=== PATIENT | male | born 1985 | race Caucasian/White ===

== ENCOUNTER 2025-07-26 02:03 | Emergency (ER) | payer MEDICAID, SELFPAY ==
[2025-07-26 02:05] VITALS: BP 171/105; PULSE 85; TEMP 36.7; O2SAT 98; BMI 27.4
--- NOTE | 2025-07-26 02:19 | XR_ITS ---
[place] [id number] Patient Name: PADMA MACKAY MRN: [id number] date: 1985 Sex: M Assigned Patient Location: ER Current Patient Location: Accession/Order Number: [id number] Exam Date: 07/26/2025 02:38 Report Date: 07/26/2025 08:28 At the request of: SERAFIN SNOW Procedure: XR acute abdomen series ACUTE ABDOMEN SERIES WITH PA CHEST : CLINICAL HISTORY: upper abd pain COMPARISON: Chest x-ray 02/21/2021 1 view Chest: Unremarkable cardiomediastinal. Lungs clear. No effusion or pneumothorax. 2 view Abd: No free air within the upper abdomen. Nonspecific bowel gas pattern with mild to moderate retained stool. Surgical clips project within the upper epigastric region. XR/XR acute abdomen series IMPRESSION: NEGATIVE PLEURAL-PARENCHYMAL DISEASE. NEGATIVE FOR BOWEL OBSTRUCTION. Impression dictated by: Sukhjinder Wayne M.D. 07/26/2025 8:28 AM Dictation Location: [place] [address] Electronically authenticated by: [id number] Y Date: 07/26/2025 08:28
--- NOTE | 2025-07-26 02:19 | ECG_ITS ---
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 Measurements Intervals [place] Rate: 76 P: 37 [place]: 156 QRS: 34 QRSD: 86 T: 19 QT: 366 QTc: 397 Interpretive Statements 1100 Sinus rhythm 1102 Sinus arrhythmia [address] elevation 8102 Low QRS voltage in chest leads 9130 borderline ECG Compared to ECG 12/15/2017 19:02:35 ST (T wave) deviation now present Low QRS voltage now present Electronically Signed On 07-26-2025 7:25:45 EST by RESHMA RICHARD M.D.
--- NOTE | 2025-07-26 02:20 | ED.ABDPAIN1 ---
HPI - Abdominal Pain General Chief Complaint: Abdominal Pain Stated Complaint: ABD PAIN Time Seen by Provider: 07/26/25 02:09 Source: patient Mode of arrival: walk-in Limitations: no limitations History of Present Illness HPI narrative: cc - abdominal pain Pr reported that around 8pm tonight, the patient developed upper abdominal pain after eating pizza. he said that the pain has worsened despite taking pepto-bismol and ibuprofen. He said that he has never had anything like this before. 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 Related Data Previous Rx's ?Medication ?Instructions ?Recorded hyoscyamine sulfate 0.125 mg 0.125 mg PO Q6H PRN abdominal pain 07/26/25 sublingual tablet (Levsin/SL) #20 tabs ondansetron 4 mg disintegrating 4 mg PO Q6H PRN nausea and 07/26/25 tablet vomiting #20 tabs Allergies Allergy/AdvReac Type Severity Reaction Status Date / Time dapsone Allergy Severe Difficulty Verified 07/26/25 02:11 Breathing PFSH PFSH Social History Little interest or pleasure in doing things: not at all Feeling down, depressed, or hopeless: not at all Exam Narrative Exam Narrative: Nurses notes and vital signs reviewed and patient is not hypoxic. afebrile General: Well-appearing and in no apparent distress. Skin: Warm, dry, no pallor noted. No rash. Eye: Pupils are equal, round and EOMI. No scleral icterus. Ears, Nose, Mouth, and Throat: Oral mucosa is moist Cardiovascular: Regular Rate and Rhythm without murmur, gallop or rub. Respiratory: No accessory muscle use or respiratory distress. Lungs are clear to auscultation, no wheezing, rales or rhonchi Back: No CVA tenderness Musculoskeletal: normal ROM GI: Abdomen is soft, non-distended. Normal bowel sounds. No solid or pulsatile masses appreciated. Diffuse upper abdominal tenderness to palpation. No rebound, guarding, or rigidity noted. Neurological: A&O x4. No cranial nerve dysfunction observed. No truncal ataxia. Moves all extremities. Sensation intact. Psychiatric: Cooperative and interactive. Normal mood and affect. Constitutional Vital Signs, click to edit/add: Last Vital Signs Temp 98.0 F 07/26/25 02:05 Pulse 85 07/26/25 02:05 Resp 20 07/26/25 02:05 BP 171/105 H 07/26/25 02:05 Pulse Ox 98 07/26/25 02:05 O2 Del Method Room Air 07/26/25 02:05 Course Vital Signs Vital signs: Vital Signs Temperature 98.0 F 07/26/25 02:05 Pulse Rate 85 07/26/25 02:05 Respiratory Rate 20 07/26/25 02:05 Blood Pressure 171/105 H 07/26/25 02:05 Pulse Oximetry 98 07/26/25 02:05 Oxygen Delivery Method Room Air 07/26/25 02:05 Temperature 98.0 F 07/26/25 02:05 Pulse Rate 85 07/26/25 02:05 Respiratory Rate 20 07/26/25 02:05 Blood Pressure 171/105 H 07/26/25 02:05 Pulse Oximetry 98 07/26/25 02:05 Oxygen Delivery Method Room Air 07/26/25 02:05 MDM - Abdominal Pain MDM Narrative Medical decision making narrative: Patient was placed on director of cardiac rehabilitation and EKG obtained. Blood drawn and sent for evaluation. Pt was ordered to receive IV Protonix and oral GI cocktail for his symptoms. CBC normal. CMP essentially unremarkable -there is a slight elevation of BUN and CO2. Lipase negative. Abdominal x-ray does not reveal any perforation or obstruction. EKG without ST elevation or deep ischemic changes. Pt's pain reduced from 8/10 to 6/10. He and I talked about his negative testing, diagnosis and plan for recovery, including clear liquid diet and advancement only to soft bland foods until his symptoms resolved. Pt was given a single Mica tab to take when he gets home - he drove - to hopefully fully resolve the pain. Lab Data Attestation: I reviewed the patient's lab results. Labs: Lab Results 07/26/25 Range/Units 02:10 WBC 9.3 (4.0-11.0) 10^3/uL RBC 4.71 (4.70-6.10) 10^6/uL Hgb 15.0 (14.0-18.0) g/dL Hct 44.0 (42.0-54.0) % MCV 93.4 (80.0-94.0) fL MCH 31.8 (25.9-34.0) pg MCHC 34.1 (29.9-35.2) g/dL RDW 11.9 (11.0-15.0) % Plt Count 252 (150-450) 10^3/uL MPV 9.0 L (9.5-13.5) fL Neut % (Auto) 52.5 (43.0-75.0) % Lymph % (Auto) 35.2 (20.5-60.0) % Ellsworth % (Auto) 9.9 (1.7-12.0) % Eos % (Auto) 1.4 (0.9-7.0) % Baso % (Auto) 0.4 (0.2-2.0) % Neut # (Auto) 4.8 (1.4-6.5) 10^3/uL Lymph # (Auto) 3.3 (1.2-3.8) 10^3/uL Ell[place] # (Auto) 0.9 H (0.3-0.8) 10^3/uL Eos # (Auto) 0.1 (0.0-0.7) 10^3/uL Baso # (Auto) 0.0 (0.0-0.1) 10^3/uL Abs Immat Gran (auto) 0.06 H (0.00-0.03) 10^3/uL Imm/Tot Granulo (auto) 0.6 H (0.0-0.5) % Sodium 142 (136-145) mmol/L Potassium 4.0 (3.5-5.1) mmol/L Chloride 104 (98-107) mmol/L Carbon Dioxide 32.5 H (21.0-32.0) mmol/L Anion Gap 9.5 BUN 19.0 H (7.0-18.0) mg/dL Creatinine 1.23 (0.70-1.30) mg/dL Est GFR ( Amer) >60 (>=60 mL/min/1.73m^2) Est GFR (Non-Af Amer) >60 (>=60 mL/min/1.73m^2) BUN/Creatinine Ratio 15.4 Glucose 95 (74-106) mg/dL Calcium 8.3 L (8.5-10.1) mg/dL Total Bilirubin 0.3 (0.2-1.0) mg/dL AST 18 (15-37) U/L ALT 39 (16-63) U/L Alkaline Phosphatase 112 (46-116) U/L Total Protein 6.4 (6.4-8.2) g/dL Albumin 3.6 (3.4-5.0) g/dL Globulin 2.8 g/dL Albumin/Globulin Ratio 1.3 Lipase 42.0 (16.0-77.0) U/L Imaging Data Abdominal x-ray: Attestation: I personally reviewed and interpreted this imaging study as follows: My impression: No perforation or obstruction was noted. No identifiable mass. Mildly increased stool burden on the right. ECG Data Attestation: I personally reviewed and interpreted this ECG as follows: Interpretation: EKG interpretation:Emergency Department physician interpretation.Normal sinus rhythm at 76bpm. Normal axis, normal intervals and nonspecific ST changes without ST segment elevation or depression. Discharge Plan Discharge Chief Complaint: Abdominal Pain Clinical Impression: Abdominal pain Patient Disposition: Home, Self-Care Time of Disposition Decision: 03:02 Prescriptions / Home Meds: New hyoscyamine sulfate [Levsin/SL] 0.125 mg tablet, sublingual 0.125 mg PO Q6H PRN (Reason: abdominal pain) Qty: 20 0RF ondansetron 4 mg tablet,disintegrating 4 mg PO Q6H PRN (Reason: nausea and vomiting) Qty: 20 0RF Print Language: Burundian Instructions: Abdominal Pain (ED) Additional Instructions: clear liquid diet for next 24hours then only ingest soft, bland foods until symptoms resolve. Referrals: Bria MOBLEY [Primary Care Provider, Family Practice] - 1 week
[2025-07-26 02:26] LABS: Hematocrit 44.0 % (42.0-54.0); Hemoglobin 15.0 g/dL (14.0-18.0); Immature Granulocytes Abs Auto 0.06 10^3/uL (0.00-0.03); Immature Granulocytes Pct Auto 0.6 % (0.0-0.5); Lymphocytes Absolute Auto 3.3 10^3/uL (1.2-3.8); Mean Corpuscular HGB Conc 34.1 g/dL (29.9-35.2); Mean Corpuscular Hemoglobin 31.8 pg (25.9-34.0); Mean Corpuscular Volume 93.4 fL (80.0-94.0); Platelet Count 252 10^3/uL (150-450); Red Blood Count 4.71 10^6/uL (4.70-6.10); White Blood Count 9.3 10^3/uL (4.0-11.0)
[2025-07-26 02:28] VITALS: PULSE 76
[2025-07-26] MEDS: PANTOPRAZOLE SODIUM 40 MG VIAL IV (02:31)
[2025-07-26 02:40] LABS: Alanine Aminotransferase 39 U/L (16-63); Albumin Globulin Ratio 1.3; Albumin Level 3.6 g/dL (3.4-5.0); Alkaline Phosphatase 112 U/L (46-116); Anion Gap 9.5; Aspartate Amino Transferase 18 U/L (15-37); Blood Urea Nitrogen 19.0 mg/dL (7.0-18.0); Calcium 8.3 mg/dL (8.5-10.1); Carbon Dioxide 32.5 mmol/L (21.0-32.0); Chloride 104 mmol/L (98-107); Estimated GFR (African America >60 (>=60 mL/min/1.73m^2); Estimated GFR (Non-African Ame >60 (>=60 mL/min/1.73m^2); Globulin 2.8 g/dL; Glucose 95 mg/dL (74-106); Lipase 42.0 U/L (16.0-77.0); Potassium 4.0 mmol/L (3.5-5.1); Sodium 142 mmol/L (136-145); Total Protein 6.4 g/dL (6.4-8.2)
--- OUTSIDE RECORDS SUMMARY | 2025-07-26 03:03 | XMS_ITS ---
Author Organization [facility] Address [address] [address] Care Team Providers Care Sheet Writer Name Role Phone Geronimo Jimenez DO Primary Care Provider [phone] Priscilla Hartmna DO Unavailable Xenia Renee Unavailable [phone] Active Problems ProblemNoted DateDiagnosed DateSprain of metacarpophalangeal joint of left thumb 04/14/20255706Dohhdwgdnrncsm54/20/2023Epididymal cyst08/08/2023llergic rhinitis 12/27/20226852Tbhlwz70/10/2023 Assessment & Plan (07/01/2025 12:48 PM EST): Patient advised to return if symptoms worsen and/or persist despite treatment. Sees pulm tomorrow Orders: predniSONE (Deltasone) 20 MG tablet; Take 1 tablet (20 mg) by mouth 3 (three) times a day for 3 days, THEN 1 tablet (20 mg) 2 (two) times a day for 3 days, THEN 1 tablet (20 mg) Daily for 2 days. Finding of above normal blood oqjvwyvp18/10/0911Pftzmupw39/10/2023 Assessment & Plan (07/01/2025 12:48 PM EST): Problem is stable, will continue with current treatment plan. Call or return to clinic if any changes occur Orders: zolpidem (Ambien) 10 MG tablet; Take 1 tablet (10 mg) by mouth as needed at bedtime for sleep Malignant tumor of /10/2023Germ cell tumor11/13/2022Stage 1 chronic kidney akvmivw9011/13/20222372Zgitmgsqkzghwrwwo68/23/2018Bleomycin lung toxicity 03/08/20159032Slizttbarfwf73/10/6219Skjqfi26/30/5918Pmjgjkn99/19/2014 Current Treatment and Therapy Plans No current plan information found. Past Treatment and Therapy Plans No past plan information found. Lifetime Dose Tracking * ChemicalLifetime DoseAutomatic EntryManual VcvorVstokxoot394.61 hZt262.61 mSv0 mSv Resolved Problems ProblemNoted DateDiagnosed DateResolved DateHx of Injury of left thumbPharyngitisLeft thumb nwzmpx85hronic kidney disease (CKD), stage I05/06/2025 05/06/2025
--- OUTSIDE RECORDS SUMMARY | 2025-07-26 03:03 | XMS_ITS | Encounter Summary ---
Author Organization [facility] Address [address] [place] [address] Care Team Providers Care [employer] Dispatcher Name Role Phone Lorettawoodrow Geronimo Pop DO Primary Care Provider [phone] Priscilla Hartman DO Unavailable [phone] Xenia Renee Unavailable [phone] Reason for Visit * ReasonOnset DateCommentsMed Iuegya6507/13/2025 Encounter Details DateTypeDepartmentCare Team (Latest Contact Info)Fcgtrrpjfcv91/24/2025Refill [facility] [address] [place] [id number] Archie Harrison LPN [address] [place] [address] Severe persistent asthma with acute exacerbation (HCC) Social History Tobacco UseTypesPacks/DayYears UsedDateSmoking Tobacco: NeverPassive Smoke Exposure: NeverSmokeless Tobacco: NeverAlcohol UseStandard Drinks/WeekComments Never0 (1 standard drink = 0.6 oz pure alcohol)PHQ-2AnswerDate RecordedPatient Health Questionnaire-2 Vtspu19008/31/2024Sex and Gender InformationValueDate RecordedSex Assigned at BirthNot on fileLegal IsuGahd3711/01/2022 8:26 PM EDT Gender IdentityNot on fileSexual OrientationNot on filedocumented as of this encounter Plan of Treatment DateTypeDepartmentCare Team (Latest Contact Info)Ouiwqxfbpny18/12/2025 8:30 AM ESTOffice Visit [facility] [address] [place] [id number] Priscilla Hartman DO [address] [place] [address] documented as of this encounter Visit Diagnoses Diagnosis Severe persistent asthma with acute exacerbation (HCC) documented in this encounter Care Teams Team MemberRelationshipSpecialtyStart DateEnd Date Geronimo Jimenez DO [address] [place] [address] PCP - GeneralFamily Medicine12/26/22 Xenia Renee PA PCP - GINA De [facility]02/18/24 Priscilla Hartman DO [address] [place] [address] Pulmonary Disease04/24/24documented as of this encounter
--- OUTSIDE RECORDS SUMMARY | 2025-07-26 03:03 | XMS_ITS | Clinical Summary ---
Author Organization [facility] Address [address] [place] [address] Care Team Providers Care Die Casting Supervisor Name Role Phone Geronimo Jimenez DO Primary Care Provider [phone] Priscilla Hartman DO Unavailable [phone] Xenia Renee Unavailable [phone] Allergies Active AllergyReactionsCriticalityNoted BozzRssfrbtfVhxynumQaretTmse12/10/2023 Prevented red blood cells from attaching to o2 TlyyoWasuaIxm28/20/2023Peanut (Diagnostic)YgjcOdq1110/18/2023 Medications MedicationSigDispense QuantityRefillsLast FilledStart DateEnd DateStatus dupilumab (Dupixent) 300 MG/2ML injection Inject 300 mg under the skinActive albuterol (2.5 MG/3ML) 0.083% nebulizer solution Indications:Severe persistent asthma with acute exacerbation (HCC)INHALE 3ml via NEBULIZER EVERY 6 HOURS NEEDED for SHORTNESS OF BREATH or FOR WHEEZING 75 mL ctive ipratropium-albuterol (Duo-Neb) 0.5-2.5 mg/3 mL nebulizer solution Indications:Severe persistent asthma with acute exacerbation (HCC)Take 3 mL by nebulization every 6 (six) hours 180 mL /5Active Fluticasone-Salmeterol (Advair Diskus) 500-50 MCG/ACT aerosol powder Indications:Severe persistent asthma with acute exacerbation (HCC),Moderate asthma, unspecified whether complicated, unspecified whether persistent (HCC) Inhale 1 puff in the morning and 1 puff before bedtime. 60 each 4Active montelukast (Singulair) 10 MG tablet Indications:Moderate asthma, unspecified whether complicated, unspecified whether persistent (HCC)TAKE 1 TABLET BY MOUTH ONCE DAILY 90 tablet 5Active Additional Information Patient taking differently:10 mg Oral Daily,(No times of day reported), Reported on 07/02/2025 Spiriva Respimat 2.5 MCG/ACT inhaler Indications:Severe persistent asthma with acute exacerbation (HCC)INHALE 2 PUFFS BY MOUTH DAILY 12 g 5Active Additional Information Patient taking differently:2 puff Daily,(No times of day reported), Reported on 07/02/2025 fluticasone (Flonase) 50 MCG/ACT nasal spray Indications:Allergic rhinitis, unspecified seasonality, unspecified trigger Instill 1 spray IN EACH NOSTRIL ONCE DAILY 16 mL 5Active buPROPion XL (Wellbutrin XL) 150 MG 24 hr tablet Indications:Other fatigue,Functional memory problemTAKE 1 TABLET BY MOUTH DAILY DO NOT CRUSH, CHEW, OR SPLIT 30 tablet 5Active traZODone (Desyrel) 50 MG tablet Indications:Insomnia, unspecified typeTAKE 1 TABLET BY MOUTH AT BEDTIME NEEDED for sleep 30 tablet 5Active xklkacziig-kpefeqkqhdlzi-drhvivmo 50-325-40 MG tablet Indications:Chronic nonintractable headache, unspecified headache typeTake 1-2 tablets by mouth every 4 (four) hours if needed for headaches Use no more than 5/day, 10/week, 30/month. 30 tablet 5Active zolpidem (Ambien) 10 MG tablet Indications:Insomnia, unspecified typeTake 1 tablet (10 mg) by mouth as needed at bedtime for sleep 20 tablet 5Active azithromycin (Zithromax) 250 MG tablet Indications:Severe persistent asthma with acute exacerbation (HCC)2 pills orally today, then 1 pill orally daily for 4 days 6 tablet 5Active albuterol HFA 90 mcg/act inhaler Indications:Severe persistent asthma with acute exacerbation (HCC)Inhale 2 puffs every 6 (six) hours if needed for wheezing or shortness of breath 8.5 g tive albuterol HFA 90 mcg/act inhaler Indications:Severe persistent asthma with acute exacerbation (HCC)Inhale 2 puffs every 6 (six) hours if needed for wheezing or shortness of breath 8.5 g Discontinued(Reorder) celecoxib (CeleBREX) 200 MG capsule Indications:Sprain of metacarpophalangeal (MCP) joint of left thumb, subsequent encounterTake 1 capsule (200 mg) by mouth Daily Take with food 30 capsule Discontinued zolpidem (Ambien) 10 MG tablet Indications:Insomnia, unspecified typeTake 1 tablet (10 mg) by mouth as needed at bedtime for sleep 20 tablet Discontinued(Reorder) predniSONE (Deltasone) 20 MG tablet Indications:Moderate asthma, unspecified whether complicated, unspecified whether persistent (HCC)Take 1 tablet (20 mg) by mouth 3 (three) times a day for 3 days, THEN 1 tablet (20 mg) 2 (two) times a day for 3 days, THEN 1 tablet (20 mg) Daily for 2 days. 17 tablet Expired predniSONE (Deltasone) 10 MG tablet Indications:Moderate asthma, unspecified whether complicated, unspecified whether persistent (HCC)Take 6 tablets (60 mg) by mouth Daily for 4 days, THEN 4 tablets (40 mg) Daily for 4 days, THEN 2 tablets (20 mg) Daily for 4 days, THEN 1 tablet (10 mg) Daily for 4 days. 52 tablet /12/2024Expired albuterol HFA 90 mcg/act inhaler Indications:Severe persistent asthma with acute exacerbation (HCC)Inhale 2 puffs every 6 (six) hours if needed for wheezing or shortness of breath 8.5 g Discontinued(Reorder) Active Problems ProblemNoted DateDiagnosed DateSprain of metacarpophalangeal joint of left thumb 04/14/20253797Saeyldzvfmsqyl80/20/2023Epididymal cyst08/08/2023llergic rhinitis 12/27/20223038Nryvhf53/10/2023 Assessment & Plan (07/01/2025 12:48 PM EST): [...] 2 days. Finding of above normal blood kkobuauq17/10/0982Zgvcmnnq75/10/2023 Assessment & Plan (07/01/2025 12:48 PM EST): Problem is stable, will continue with current treatment plan. 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/27/2022erm cell tumor11/13/2022Stage 1 chronic kidney cwfhlfv8711/13/20227141Vmvydybxgqdsalkuy01/23/2018Bleomycin lung toxicity 03/08/20158714Qvjyqqyfuoyj21/10/4047Wiskvr75/30/6226Rmeeiml91/19/2014 Resolved Problems ProblemNoted DateDiagnosed DateResolved DateHx of cpbjnfjuz49 Injury of left thumbPharyngitisLeft thumb pzzqvt11hronic kidney disease (CKD), stage I05/06/2025 05/06/2025 Encounters DateTypeDepartmentCare GztnZnpabxrniax85/24/2025Refill [facility] [address] [place] [address] Archie Harrison LPN Severe persistent asthma with acute exacerbation (HCC)07/08/2025Telephone [facility] [address] [place] [address] Geronimo Jimenez DO 07/02/2025 10:30 AM ESTOffice Visit [facility] [address] [place] [place] [phone] Priscilla Hartman DO Severe persistent asthma with acute exacerbation (HCC) (Primary Dx); Bleomycin lung nbgylpau47/13/2814Fjsoyr86/12/2025 12:40 PM ESTOffice Visit [facility] [address] [place] [phone] Geronimo Jimenez DO Moderate asthma, unspecified whether complicated, unspecified whether persistent (HCC) (Primary Dx); Insomnia, unspecified type07/01/20258642Auvazd36/12/2025Refill [facility] [address] [place] [address] Geronimo Jimenez DO Insomnia, unspecified type07/01/2025Refill [facility] [address] [place] [address] Archie Harrison, CRIPPLE CUTTER Insomnia, unspecified type06/10/2025Refill [facility] [address] [place] [address] Archie Harrison, CRIPPLE CUTTER Chronic nonintractable headache, unspecified headache type06/04/2025Refill [facility] [address] [place] [address] Archie Harrison, CRIPPLE CUTTER Insomnia, unspecified type06/02/2025[facility]phone [facility] [address] [place] [address] Robin Headley PA Eizjnqhy41/07/2025 8:15 AM EDTOffice Visit [facility] [address] [place] [phone] Robin Headley PA Thumb pain, left (Primary Dx); Sprain of metacarpophalangeal (MCP) joint of left thumb, subsequent encounter 05/26/2025Refill [facility] [address] [place] [address] Geronimo Jimenez, DO Insomnia, unspecified type05/26/2025Refill [facility] [address] [place] [address] Archie Harrison LPN Insomnia, unspecified type05/26/2025amboo flowsheet [facility] [address] [facility] [place] [address] Robin Headley PA 05/26/20257126Znryrc27/23/2025bstract [facility] [address] [place] [address] Geronimo Jimenez DO 05/08/2025 10:30 AM EDTAncillary Procedure [facility] [address] [place] [address] Pain of left thumb05/08/2025Results Follow-Up [facility] [place] [address] Robin Headley PA MR hand left wo IV liezkmui77/19/9626Ltftaq12/16/2025 8:15 AM EDTOffice Visit [facility] [place] [address] Robin Headley PA Pain of left thumb (Primary Dx)05/05/2025amb flowsheet [facility] [address] [facility] [place] [address] Robin Headley PA 05/05/20259843Urtrny18/11/2025 7:00 AM EDTTreatment [facility] [address] [place] [address] Trina Pepe, FLORENCIA Sprain of metacarpophalangeal (MCP) joint of left thumb, initial encounter (Primary Dx)04/30/2025amboo flowsheet [facility] [address] [place] [address] Trina Pepe, OT 04/30/20251597Digipv29/08/2025Telephone [facility] [address] [place] [address] Trina Pepe, OT re: Fu on 04/24/25; Call Backfrom Last 3 Months Immunizations ImmunizationAdministration DatesNext DueInfluenza, injectable, quadrivalent 09/25/2020Influenza, injectable, quadrivalent, preservative free06/16/2019, 06/24/2018Pneumococcal Conjugate PCV 131 Family History Medical HistoryRelationNameCommentsNo Known ProblemsDaughterColon cancerPaternal GrandmotherBreast cancerNeg HxOvarian cancerNeg HxRelationNameStatusComments Brother2 brothersDaughter2 daughtersFatherAliveMotherAlivePaternal Grandmother DeceasedSon1 son Social History Tobacco UseTypesPacks/DayYears UsedDateSmoking Tobacco: NeverPassive Smoke Exposure: NeverSmokeless Tobacco: Never Tobacco Cessation:Counseling Given: Yes Alcohol UseStandard Drinks/WeekCommentsNever0 (1 standard drink = 0.6 oz pure alcohol)PHQ-2AnswerDate RecordedPatient Health Questionnaire-2 Ryfez11508/31/2024 Sex and Gender InformationValueDate RecordedSex Assigned at BirthNot on file Legal SatBsdm7411/01/2022 8:26 PM EDTGender IdentityNot on fileSexual Orientation Not on file Last Filed Vital Signs Vital SignReadingTime TakenCommentsBlood Hlazphff804/8407/02/2025 10:34 AM EST Vtcez079807/02/2025 10:34 AM EOWElnxixechle66.2 ??C (97.1 ??F)07/01/2025 12:33 PM ESTRespiratory Rate--Oxygen Ybajxusuhz97%07/02/2025 10:34 AM ESTInhaled Oxygen Concentration--Olgyow72.8 kg (220 lb)07/02/2025 10:34 AM EEPHzlxra963 cm (6' 4 ) 07/02/2025 10:34 AM ESTBody Mass Index26.7807/02/2025 10:34 AM EST Plan of Treatment DateTypeDepartmentCare Team (Latest Contact Info)Gyiuxfmsnjs64/05/2026 8:30 AM ESTOffice Visit [facility] [address] [place] [address] Priscilla Hartman, DO [address] [place] [address] Health MaintenanceDue DateLast DoneCommentsPneumococcal Vaccine: Pediatrics (0 to 5 Years) and At-Risk Patients (6 to 64 Years) (2 of 2 - PPSV23, PCV20, or PCV21)COVID-19 Vaccine ( - season)2025 Influenza Vaccine (#1)/01/2021, 06/16/2019, 06/24/2018 Procedures Procedure NamePriorityDate/TimeAssociated DiagnosisCommentsMR HAND LEFT WO IV QSJBIMRJRpmwubb18/19/2025 11:40 AM EDT Pain of left thumb from Last 3 Months Results * MR hand left wo IV contrast (05/08/2025 11:40 AM EDT)Anatomical Region LateralityModalityUpper Extremities, HandLeftMagnetic ResonanceSpecimen (Source)Anatomical Location / LateralityCollection Method / VolumeCollection TimeReceived Time05/08/2025 2:52 PM EDT Impressions 05/08/2025 2:59 PM EDT Grossly intact ligaments of the thumb MCP joint. Intact appearing thumb tendons. Subchondral bone marrow edema of the thumb proximal phalanx, which could be reactive/contusion or degenerative in etiology. ELECTRONICALLY SIGNED BY: Rafael Miranda MD Narrative 05/08/2025 2:59 PM EDT EXAM/TECHNIQUE: MR HAND LEFT WO IV CONTRAST HISTORY: Basketball related injury of the thumb with pain and swelling at the MCP joint. COMPARISON: None RESULT: LIGAMENTS: The ulnar and radial collateral ligaments of the MCP joint and IP joint are grossly intact. ?? TENDONS: The flexor and extensor pollicis tendons are grossly intact. ?? CARTILAGE, BONE MARROW: Subchondral bone marrow edema involving the thumb proximal phalanx at the MCP joint, which could be reactive/contusion, or degenerative in etiology. MUSCLE: Muscle bulk and signal intensity is within normal limits. JOINT FLUID AND SYNOVIUM: Small amount of fluid signal at the edge of the jjutg-td-tsqx near the radiocarpal joint, could represent focal fluid or small ganglion cyst. OTHER: Small amount of subcutaneous edema/fluid near the thumb MCP joint, likely reactive. Procedure Note Rafael Miranda MD - 05/08/2025 EXAM/TECHNIQUE: MR HAND LEFT WO IV CONTRAST HISTORY: Basketball related injury of the thumb with pain and swelling atthe MCP joint. COMPARISON: None RESULT: LIGAMENTS: The ulnar and radial collateral ligaments of the MCP joint andIP joint are grossly intact. TENDONS: The flexor and extensor pollicis tendons are grossly intact. CARTILAGE, BONE MARROW: Subchondral bone marrow edema involving the thumb proximal phalanx at the MCP joint, which could be reactive/contusion, or degenerative in etiology. MUSCLE: Muscle bulk and signal intensity is within normal limits. JOINT FLUID AND SYNOVIUM: Small amount of fluid signal at the edge of the znhik-cn-qhax near the radiocarpal joint, could represent focal fluid orsmall ganglion cyst. OTHER: Small amount of subcutaneous edema/fluid near the thumb MCP joint,likely reactive. IMPRESSION: Grossly intact ligaments of the thumb MCP joint. Intact appearing thumbtendons. Subchondral bone marrow edema of the thumb proximal phalanx, which couldbe reactive/contusion or degenerative in etiology. ELECTRONICALLY SIGNED BY: Rafael Miranda MD Authorizing ProviderResult TypeResult StatusMatthew Serafin [place] [facility] PROCEDURES Final Result from Last 3 Months Insurance * Guarantor: Tr Gutierrez AAccount TypeRelation to PatientDate of BirthPhone Billing AddressPersonal/[address] [place] [address] Care Teams Team MemberRelationshipSpecialtyStart DateEnd Date Geronimo Jimenez DO [address] [place] [address] [facility] - [facility] Xenia Renee PA PCP - [facility]02/18/24 Priscilla Hartman DO [address] [place] [address] Pulmonary Disease04/24/24
[2025-07-26] MEDS: HYDROCODONE/ACET 5-325 MG TABLET 1 TAB PO (03:21)
[2025-07-26 03:29] VITALS: BP 140/82; PULSE 87; TEMP 36.7; O2SAT 98
== END 2025-07-26 03:30 | disposition home or self-care (01) ==
PROVIDERS: Emergency Provider Emergency Medicine; Family Provider Family Medicine; PCP Family Medicine
DX: R10.9 Unspecified abdominal pain (principal); Z85.47 Personal history of malignant neoplasm of testis; Z92.21 Personal history of antineoplastic chemotherapy
CPT/HCPCS: 36415; 74022; 80053; 83690; 85025; 93005; 96374; 99284; 99285